=== PATIENT | female | born 1970 | race Caucasian/White ===

== ENCOUNTER 2020-07-01 14:45 | Emergency (ER) | payer BC ==
[2020-07-01 15:01] VITALS: BP 134/86; PULSE 98; TEMP 98.5; BMI 26.9
--- NOTE | 2020-07-01 15:04 | PDOC ---
History of Present Illness - General Chief Complaint: Pain Stated Complaint: RIGHT GROIN, URINARY SX Time Seen by Provider: 07/01/20 14:59 - History of Present Illness Initial Comments: 07/01/20 15:14 Chief complaint: Right lower quadrant abdominal and pelvic pain for 3 days HPI: UTI 2 weeks ago, dysuria at that time, took antibiotics, dysuria resolved. Concerned that pain may be related to partially treated UTI. Had a hysterectomy but still has her ovaries. No vaginal bleeding or discharge Review of systems: Denies nausea, vomiting, constipation, or diarrhea. No change in bowel habits. Admits to increase in her anxiety and depression due to world events. Past medical history: 2, para 2, 2 children, youngest is 23 years old. Hysterectomy for fibroids. Ovaries are still intact. Only medication is for anxiety/depression Social/family history: As above, otherwise reviewed and noncontributory Physical exam: Alert and oriented well-developed well-nourished no acute distress cheerful and cooperative Afebrile, vital signs normal No pallor or icterus. HEENT normal Neck supple without bruit mass or nodes Lungs clear, full breath sounds bilaterally CV S1-S2 normal without murmur rub or gallop pulses full and symmetric no JVD or edema no bruits Abdomen nondistended. Bowel sounds normal. Soft without mass tenderness organomegaly. Despite indicating moderate pain in the right lower quadrant/pelv ic area, no tenderness could be elicited with palpation. Neurological intact Extremities no CCE Skin clear, no rash, adequate turgor and wet mucous membranes Impression: Vague and nonreproducible right lower quadrant/pelvic pain. Recent UTI. Rule out partially treated UTI/cystitis, other possibilities include ruptured ovarian cyst, appendicitis, atypical renal colic, gastroenteritis/colitis. Plan: Urinalysis, urine culture, CBC and chemistries, further evaluation and treatment depending on results. Past History - Medical History Allergies/Adverse Reactions: Allergies Allergy/AdvReac Type Severity Reaction Status Date / Time No Known Drug Allergies Allergy Verified 07/01/20 14:46 Home Medications: Ambulatory Orders Bupropion HCl [Bupropion Xl] 300 mg PO DAILY 07/01/20 Ibuprofen 800 mg PO TID PRN #20 tablet 07/01/20 Pramipexole Di-HCl [Mirapex] 0 mg PO DAILY 07/01/20 Topiramate 0 mg PO DAILY 07/01/20 Anemia: No Asthma: No Cancer: No Cardiac Disorders: No CVA: No COPD: No CHF: No Dementia: No Diabetes: No GI Disorders: No Disorders: No HTN: No Hypercholesterolemia: No Liver Disease: No Psychiatric Problems: Yes (anxiety) Seizures: No Thyroid Disease: No Other medical history: RLS - Surgical History Abdominal Surgery: No Appendectomy: No Cardiac Surgery: No Cholecystectomy: No Lung Surgery: No Neurologic Surgery: No Orthopedic Surgery: No - Reproductive History Is Patient Now?: No - Psycho-Social/Smoking History Smoking History: Never smoked Have you smoked in the past 12 months: No Information on smoking cessation initiated: No - Substance Abuse Hx (Audit-C & DAST Scrn) How often the patient has a drink containing alcohol: Never Score: In Men: 4 or > Positive; In Women: 3 or > Positive: 0 Screen Result (Pos requires Nsg. Audit-10AR): Negative In the last yr the pt used illegal drug/Rx for NonMed reason: No Score: Yes response is considered Positive: 0 Screen Result (Positive result requires Nsg. DAST-10): Negative *Physical Exam - Vital Signs Last Vital Signs Temp Pulse Resp BP Pulse Ox 98.5 F 98 H 18 134/86 100 07/01/20 14:45 07/01/20 14:45 07/01/20 14:45 07/01/20 14:45 07/01/20 14:45 ED Treatment Course - LABORATORY CBC & Chemistry Diagram: 07/01/20 15:25 07/01/20 15:16 Medical Decision Making - Medical Decision Making 07/01/20 17:24 Analysis: Clear CBC and chemistries: No significant abnormalities. No white count. Pelvic examination was performed after above results were obtained. There was a small amount of normal-appearing white discharge. No cervical os. No uterus palpable. Right ovary was enlarged and mildly tender, suggestive of a cyst. Very unlikely that there is a UTI or appendicitis. Most likely etiology appears to be functional ovarian cyst. Referred to [facility], prescribed ibuprofen, to return to ER if pain worsens or other symptoms develop, otherwise follow-up with [facility] in 1 week to make sure there is not a more serious process in the ovary. Fully ambulatory and in no severe pain at discharge to follow-up as directed Discharge - Discharge Information Problems reviewed: Yes Clinical Impression/Diagnosis: Ovarian cyst Qualifiers: Laterality: right Qualified Code(s): N83.201 - Unspecified ovarian cyst, right side Condition: Stable Disposition: HOME - Admission No - Additional Discharge Information Prescriptions: Ibuprofen 800 mg PO TID PRN #20 tablet PRN Reason: Pain - Follow up/Referral Referrals: Yunior Maher MD [Staff Physician] - 1 week - Patient Discharge Instructions Patient Printed Discharge Instructions: DI for Ovarian Cyst Additional Instructions: Urinalysis shows no evidence of a recurrent urine infection. However, a urine culture was done and will take 2 days for results. If there is any evidence of low-grade infection at that time, you will be contacted. There is no evidence in your blood work or your physical examination of appendicitis. Your symptoms and physical examination suggest an ovarian cyst on the right, which should gradually resolve on its own in another few days. In any case, you should have a follow-up with [facility] in approximately 1 week. Take medication as needed for pain Return to ER if pain worsens or if additional symptoms develop. Otherwise follow-up with [facility] doctor in 1 week - Post Discharge Activity Work/Back to School Note: Back to Work
[2020-07-01 15:40] LABS: EOS % 3.1 % (0-4.5); HEMATOCRIT 42.2 % (32.4-45.2); HEMOGLOBIN 14.1 GM/dl (10.7-15.3); LYMPH % 42.5 % (8-40); MCH 31.1 pg (25.7-33.7); MCHC 33.3 g/dl (32.0-36.0); MEAN CELL VOLUME 93.5 fl (80-96); MEAN PLT VOLUME 10.1 fl (7.5-11.1); MONO % 6.9 % (3.8-10.2); NEUT % 46.5 % (42.8-82.8); PLATELET COUNT 289 K/MM3 (134-434); RBC 4.52 M/mm3 (3.60-5.2); RDW 13.6 % (11.6-15.6); WHITE BLOOD COUNT 4.7 K/mm3 (4.0-10.8)
[2020-07-01 15:52] LABS: ALBUMIN 4.7 g/dl (3.4-5.0); BILIRUBIN,TOTAL 0.5 mg/dl (0.2-1); CALCIUM 9.9 mg/dl (8.5-10); CREATININE 1.1 mg/dl (0.55-1.3); POTASSIUM 3.9 mmol/L (3.5-5.1)
== END 2020-07-01 17:30 | disposition home or self-care (01) ==
LOC: FER 14:45 → SUPCPDRO 14:45 → FER 17:30
DX: N83.201 Unspecified ovarian cyst, right side (principal)
CPT/HCPCS: 36415; 80053; 81003; 85025; 87086; 99284-25

== ENCOUNTER 2022-03-05 16:22 | Emergency (ER) | payer BC ==
[2022-03-05 16:51] VITALS: BP 138/90; PULSE 87; TEMP 98.5; BMI 31.7
[2022-03-05] MEDS ORDERED: LORazepam 1 MG TABLET PO ONE (17:02)
[2022-03-05] MEDS ORDERED: LORazepam 0.5 MG TABLET ONE (17:21)
== END 2022-03-05 17:48 | disposition home or self-care (01) ==
LOC: FER 16:22
DX: R42 Dizziness and giddiness (principal); F43.0 Acute stress reaction
CPT/HCPCS: 99283-25